=== PATIENT | female | born 1955 | race Caucasian/White ===

== ENCOUNTER 2017-03-10 10:47 | Emergency (ER) | payer BC ==
[~2017-03-10] VITALS: Ht 172.7 cm; Wt 59.9 kg
[2017-03-10 11:40] LABS: ABSOLUTE BASOPHILS 0.1 thou/uL (0.0-0.2); ABSOLUTE EOSINOPHILS 0.1 thou/uL (0.0-0.7); ABSOLUTE LYMPHOCYTES 1.7 thou/uL (0.8-5.3); ABSOLUTE MONOCYTES 0.4 thou/uL (0.0-1.2); ABSOLUTE NEUTROPHILS 4.1 thou/uL (1.6-8.1); BASOPHILS 0.9 %; EOSINOPHILS 1.4 %; HEMATOCRIT 38.4 % (37.0-47.0); HEMOGLOBIN 12.9 gm/dL (12.0-15.0); LYMPHOCYTES 27.3 %; MCH 30.5 pg (26.0-34.0); MCHC 33.7 g/dL (28.0-37.0); MCV 90.4 fL (80.0-100.0); MONOCYTES 6.9 %; NUCLEATED RBCS 0 /100WBC; PLATELET COUNT* 280 thou/uL (150-400); POLYS 63.5 %; RBC 4.25 mil/uL (4.20-5.00); RDW-CV 13.5 % (10.5-14.5); WBC 6.4 thou/uL (4.0-11.0)
[2017-03-10 11:50] LABS: ANION GAP 6 mmol/L (7-16); BUN 13 mg/dL (7-18); CHLORIDE 100 mmol/L (98-107); CO2 32 mmol/L (21-32); CREATININE 0.8 mg/dL (0.6-1.3); GLUCOSE 115 mg/dL (70-99); POTASSIUM 3.6 mmol/L (3.5-5.1); SODIUM 138 mmol/L (136-145)
[2017-03-10 11:55] LABS: ALBUMIN 3.8 g/dL (3.4-5.0); ALKALINE PHOSPHATASE 40 U/L (46-116); LIPASE 102 U/L (73-393); SGOT 20 U/L (15-37); SGPT 24 U/L (30-65); TOTAL BILIRUBIN 0.6 mg/dL (<0.1-1.0); TOTAL PROTEIN 7.5 g/dL (6.4-8.2)
[2017-03-10 12:24] LABS: TROPONIN-I LEVEL <0.06 ng/mL (<0.06)
[2017-03-10 12:35] LABS: URINE BILIRUBIN NEGATIVE (Negative); URINE BLOOD NEGATIVE (Negative); URINE CLARITY CLEAR; URINE COLOR YELLOW; URINE GLUCOSE-RANDOM NEGATIVE (Negative); URINE KETONES NEGATIVE (Negative); URINE LEUKOCYTES NEGATIVE (Negative); URINE NITRITE NEGATIVE (Negative); URINE PROTEIN NEGATIVE (Negative); URINE SPECIFIC GRAVITY 1.015 (1.005-1.030); URINE UROBILINOGEN 0.2 E.U./dl (0.2-1.0)
[2017-03-10] MEDS ORDERED: XANAX1 MG PO (12:41)
[2017-03-10 12:44] LABS: AMP/METHAMP Negative (Negative); BARBITURATES Negative (Negative); BENZODIAZEPINES Negative (Negative); COCAINE Negative (Negative); METHADONE Negative (Negative); OPIATES Negative (Negative); PCP Negative (Negative); THC Negative (Negative)
[2017-03-10 12:51] VITALS: BP 104/64
--- NOTE | 2017-03-10 14:26 | EKG ---
[place] [address] ELECTROCARDIOGRAM REPORT Name: ISAC TAYLORN Room: [facility]#: [id number] Admission: 03/10/17 Attend Phys: Discharge: 03/10/17 Date of : 55 Report #: [id number] THIS REPORT FOR: //name// [facility] ED Test Date: 2017-03-10 Test Time: 11:32:01 Pat Name: DAILY TAYLOR Department: Room: Gender: F Rv Service Technician: Tyron MORGAN : 1955 Requested By: Elana Jeter Order Number: [id number] MD: Isac Fairbanks Measurements Intervals [place] Rate: 57 P: 71 FL: 184 QRS: 55 QRSD: 101 T: 55 QT: 409 QTc: 399 Interpretive Statements Sinus bradycardia Borderline low voltage, extremity leads Baseline wander in lead(s) V2 No previous ECG available for comparison Electronically Signed On 03-10-2017 14:26:35 CONTENT MANAGEMENT CONSULTANT by Isac Fairbanks [email or web address] <ELECTRONICALLY SIGNED> By: Isac Fairbanks MD, [facility] 03/10/17 1426 1132 113 Isac Fairbanks MD, FACC /EPI
== END 2017-03-10 12:53 | disposition home or self-care (01) ==
LOC: M.ERS 10:47
PROVIDERS: Physician Assistant
DX: F41.0 Panic disorder [episodic paroxysmal anxiety] (principal); Z88.0 Allergy status to penicillin

== ENCOUNTER 2019-08-31 18:02 | Emergency (ER) | payer OTHER ==
[~2019-08-31] VITALS: Ht 172.7 cm; Wt 63.5 kg
[~2019-08-31 18:02] MED LIST: XANAX1 MG PO
[2019-08-31] MEDS ORDERED: LEVO-T50 MCG PO (18:12)
[2019-08-31] MEDS ORDERED: ARMOUR THYROID15 M1 PO (18:12)
[2019-08-31] MEDS ORDERED: CRINONE1.125 G1 VG (18:13)
[2019-08-31] MEDS ORDERED: NORCO 5-325 TA1 EAC2 PO (19:27)
[2019-08-31] MEDS ORDERED: ZOFRAN ODT4 MG PO (19:27)
[2019-08-31 19:41] VITALS: BP 115/70
== END 2019-08-31 19:42 | disposition home or self-care (01) ==
LOC: M.ERS 18:02
DX: M25.511 Pain in right shoulder (principal); Z88.0 Allergy status to penicillin

== ENCOUNTER 2021-01-26 11:14 | Emergency (ER) | payer OTHER ==
[~2021-01-26 11:14] MED LIST changes: +ARMOUR THYROID15 M1 PO; +CRINONE1.125 G1 VG; +LEVO-T50 MCG PO; +NORCO 5-325 TA1 EAC2 PO; +ZOFRAN ODT4 MG PO
== END 2021-01-26 11:19 | disposition left against medical advice (07) ==
LOC: M.ERS 11:14
DX: H57.12 Ocular pain, left eye (principal); Z53.21 Procedure and treatment not carried out due to patient leaving prior to being seen by health care provider